=== PATIENT | male | born 1975 | race African-American/Black ===

== ENCOUNTER 2019-04-09 09:39 | Emergency (ER) | payer SELFPAY ==
[~2019-04-09] VITALS: Ht 182.8 cm; Wt 72.6 kg
[2019-04-09] MEDS ORDERED: AMOXICILLIN500 M2 PO (10:07)
[2019-04-09] MEDS ORDERED: ZYRTEC10 MG PO (10:07)
[2019-04-09] MEDS ORDERED: FLONASE ALLERG9.9 ML NAS (10:07)
== END 2019-04-09 10:19 | disposition home or self-care (01) ==
LOC: ED 09:39
DX: J32.9 Chronic sinusitis, unspecified (principal); J40 Bronchitis, not specified as acute or chronic; F17.200 Nicotine dependence, unspecified, uncomplicated

== ENCOUNTER 2019-07-02 09:52 | Emergency (ER) | payer SELFPAY ==
[~2019-07-02] VITALS: Ht 182.8 cm; Wt 74.8 kg
[~2019-07-02 09:52] MED LIST: AMOXICILLIN500 M2 PO; FLONASE ALLERG9.9 ML NAS; ZYRTEC10 MG PO
[2019-07-02] MEDS ORDERED: IBUPROFEN600 MG PO (13:15)
== END 2019-07-02 12:55 | disposition home or self-care (01) ==
LOC: ED 09:52
DX: M70.72 Other bursitis of hip, left hip (principal)

== ENCOUNTER 2022-06-02 15:55 | Emergency (ER) | payer SELFPAY ==
[~2022-06-02] VITALS: Wt 77.1 kg
[~2022-06-02 15:55] MED LIST changes: +IBUPROFEN600 MG PO
[2022-06-02] MEDS ORDERED: NAPROSYN500 MG PO (17:16)
[2022-06-02] MEDS ORDERED: MEDROL DOSEPAK4 MG PO (17:16)
== END 2022-06-02 17:40 | disposition home or self-care (01) ==
LOC: ED 15:55
DX: M25.552 Pain in left hip (principal); Z79.899 Other long term (current) drug therapy

== ENCOUNTER 2023-08-25 17:40 | Emergency (ER) | payer BC ==
[~2023-08-25] VITALS: Ht 182.8 cm; Wt 74.8 kg
[~2023-08-25 17:40] MED LIST changes: +MEDROL DOSEPAK4 MG PO; +NAPROSYN500 MG PO
[2023-08-25] MEDS ORDERED: CYCLOBENZAPRINE10 MG PO (19:22)
== END 2023-08-25 19:27 | disposition home or self-care (01) ==
LOC: ED 17:40
DX: M54.41 Lumbago with sciatica, right side (principal); Z20.828 Contact with and (suspected) exposure to other viral communicable diseases; M79.604 Pain in right leg

== ENCOUNTER 2024-04-04 08:34 | Emergency (ER) | payer BC ==
[~2024-04-04] VITALS: Ht 182.8 cm; Wt 83.9 kg
[~2024-04-04 08:34] MED LIST changes: +CYCLOBENZAPRINE10 MG PO
[2024-04-04 09:37] LABS: BASO # 0.1 10*3/uL (0.0-0.1); BASO % 0.7 % (0.0-1.0); EOS # 0.2 10*3/uL (0.0-0.4); EOS % 1.5 % (1.0-4.0); LYMPH # 3.4 10*3/uL (1.3-4.4); LYMPH % 34.1 % (27.0-41.0); MEAN CELL VOLUME 89.1 fl (80.0-94.0); MEAN CORPUSCULAR HGB 28.5 pg (27.0-31.0); MEAN PLATELET VOLUME 8.7 fl (9.6-12.3); MONO # 0.8 10*3/uL (0.1-1.0); MONO % 7.8 % (3.0-9.0); NEUT # 5.5 10*3/uL (2.3-7.9); NEUT % 55.4 % (47.0-73.0); PLATELET COUNT AUTOMATED 316 10*3/uL (130-400); RED BLOOD COUNT 4.94 10*6/uL (4.50-5.90); RED CELL DISTRI WIDTH 12.7 % (0-14.5); WHITE BLOOD COUNT 9.9 10*3/uL (4.8-10.8)
[2024-04-04] MEDS ORDERED: AVPAK AZITHROM250 M1 PO (09:47)
[2024-04-04] MEDS ORDERED: CYCLOBENZAPRINE10 MG PO (09:58)
[2024-04-04] MEDS ORDERED: IBU800 M2 PO (09:58)
[2024-04-04 09:59] LABS: ALKALINE PHOSPHATASE 77 U/L (46-116); BUN 7 mg/dl (9-23); CHLORIDE 105 mmol/L (98-107); POTASSIUM 3.9 mmol/L (3.4-5.1); SGPT/ALT 35 U/L (5-49); TOTAL PROTEIN 7.5 gm/dL (6.0-8.0)
== END 2024-04-04 09:48 | disposition home or self-care (01) ==
LOC: ED 08:34
PROVIDERS: Emergency Medicine
DX: J32.9 Chronic sinusitis, unspecified (principal); Z20.822 Contact with and (suspected) exposure to COVID-19; M54.32 Sciatica, left side; M79.605 Pain in left leg